=== PATIENT | male | born 1985 | race Native Hawaiian/Other Pacific Islander ===

== ENCOUNTER → 2017-01-02 | Outpatient (CLI) | payer OTHER ==
--- NOTE | 2017-01-02 13:30 | MR ---
EXAMINATION TYPE: MR lumbar spine wo con DATE OF EXAM: 01/02/2017 12:45 PM COMPARISON: NONE HISTORY: LOW BACK PAIN FOR YEARS TECHNIQUE: Multiplanar, multisequence images of the lumbar spine were acquired. L1-L2: Normal disc appearance without desiccation. No herniation, protrusion or disc bulging. No ca nal stenosis is present. Foramina are patent bilaterally. L2-L3: Normal disc appearance without desiccation. No herniation, protrusion or disc bulging. No ca nal stenosis is present. Foramina are patent bilaterally. L3-L4: Normal disc appearance without desiccation. No herniation, protrusion or disc bulging. No ca nal stenosis is present. Foramina are patent bilaterally. L4-L5: Normal disc appearance without desiccation. No herniation, protrusion or disc bulging. No ca nal stenosis is present. Foramina are patent bilaterally. L5-S1: Normal disc appearance without desiccation. No herniation, protrusion or disc bulging. No ca nal stenosis is present. Foramina are patent bilaterally. Lumbar segments are intact. No paraspinal masses are identified. Conus medullaris has a normal appe arance. IMPRESSION:
== END | disposition home or self-care (01) ==
LOC: RADMRIMAIN 12:07
PROVIDERS: ATTEND Family Medicine
DX: M51.36 Other intervertebral disc degeneration, lumbar region (principal)
CPT/HCPCS: 72148

== ENCOUNTER 2017-01-29 05:44 | Observation (INO) | payer OTHER ==
[2017-01-29] MEDS ORDERED: RX INFO: IV CONTRAST WAS GIVEN 1 EACH MISC MISCELLANE PRN (06:19)
[2017-01-29] MEDS ORDERED: ACETAMINOPHEN IV (For NPO) 1,000 MG in SALINE 1 100ML.BAG IVPB STA (06:20)
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
[2017-01-29 06:39] LABS: Basophils # (A) 0.1 k/uL (0-0.2); Basophils % (A) 0 %; CH 28.6; CHCM 32.5; Eosinophils # (A) 0.1 k/uL (0-0.7); Eosinophils % (A) 1 %; HCT 41.9 % (39.0-53.0); HDW 2.57; HGB 13.4 gm/dL (13.0-17.5); Luc # (Auto) 0.16; Luc % (Auto) 1; Lymphocytes # (A) 1.6 k/uL (1.0-4.8); Lymphocytes % (A) 10 %; MCH 28.3 pg (25.0-35.0); MCV 88.5 fL (80.0-100.0); Mean Platelet Volume 7.6; Monocytes # (A) 0.6 k/uL (0-1.0); Monocytes % (A) 4 %; Neutrophils # (A) 12.8 k/uL (1.3-7.7); Neutrophils % (A) 84 %; RBC 4.73 m/uL (4.30-5.90); RDW 13.6 % (11.5-15.5); WBC 15.3 k/uL (3.8-10.6)
[2017-01-29 06:49] LABS: ALT 50 U/L (21-72); AST 33 U/L (17-59); Alcohol <10 mg/dL; Alkaline Phosphatase 76 U/L (38-126); Anion Gap 13 mmol/L; Blood Urea Nitrogen 11 mg/dL (9-20); Calcium 9.8 mg/dL (8.4-10.2); Carbon Dioxide 28 mmol/L (22-30); Chloride 105 mmol/L (98-107); Glucose 94 mg/dL (74-99); Non-African American GFR(MDRD) >60 (>60 ml/min/1.73 sqM); Potassium 4.3 mmol/L (3.5-5.1); Sodium 146 mmol/L (137-145); Total Bilirubin 0.5 mg/dL (0.2-1.3); Total Protein 7.6 g/dL (6.3-8.2)
[2017-01-29 06:50] LABS: Partial Thromboplastin Time 23.8 sec (22.0-30.0); Prothrombin Time 10.2 sec (9.0-12.0)
[2017-01-29 06:59] LABS: Creatine Kinase 123 U/L (55-170)
[2017-01-29 07:11] LABS: Creatine Kinase MB 0.6 ng/mL (0.0-2.4); Troponin I <0.012 ng/mL (0.000-0.034)
[2017-01-29] MEDS ORDERED: KETOROLAC 30 MG/ML 1 ML VIAL IVP STA (07:28)
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
[2017-01-29] MEDS ORDERED: SODIUM CHLORIDE 0.9% 1,000 ML IV ONE (08:55)
[2017-01-29] MEDS ORDERED: LEVOFLOXACIN 750 MG TAB PO STA (08:56)
[2017-01-29] MEDS ORDERED: HYDROcodone/APAP 5-325MG 1 EACH TAB PO PRN (09:12)
[2017-01-29] MEDS ORDERED: ONDANSETRON 4 MG/2 ML VIAL IVP STA (09:12)
[2017-01-29] MEDS ORDERED: HYDROmorphone 1 MG/ML 1 ML SYRINGE IVP STA (09:12)
[2017-01-29 12:21] LABS: Appearance,Urine Clear (Clear); Bilirubin,Urine Negative (Negative); Glucose,Urine (UA) Negative (Negative); Ketones,Urine Negative (Negative); Leukocyte Esterase,Urine Negative (Negative); Mucus,Urine Rare /hpf; Nitrite,Urine Negative (Negative); Particle Count 1981; Protein,Urine Trace (Negative); RBC,Urine <1 /hpf (0-5); Specific Gravity,Urine 1.034 (1.001-1.035); UA Billing (MACRO vs. MICRO) CHEM; Urobilinogen,Urine <2.0 mg/dL (<2.0); WBC,Urine <1 /hpf (0-5)
[2017-01-29 12:29] VITALS: BMI 28.5
[2017-01-29] MEDS ORDERED: HYDROcodone/APAP 10-325MG 1 EACH TAB PO PRN (12:33)
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
[2017-01-29] MEDS: HYDROcodone/APAP 10-325MG 1 EACH TAB PO PRN ×2 (16:27→21:35)
[2017-01-29] MEDS: IBUPROFEN 600 MG TAB PO SCH ×2 (20:53→21:16)
[2017-01-29] MEDS: FAMOTIDINE 20 MG TAB PO SCH (20:53)
[2017-01-29] MEDS ORDERED: LORazepam 1 MG TAB PO SCH (21:00)
[2017-01-30] MEDS: IBUPROFEN 600 MG TAB PO SCH ×2 (02:00→08:52)
[2017-01-30] MEDS: HYDROcodone/APAP 10-325MG 1 EACH TAB PO PRN ×2 (03:55→10:34)
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
[2017-01-30 08:50] VITALS: RESP 16; TEMP 97.4
[2017-01-30] MEDS: FAMOTIDINE 20 MG TAB PO SCH (08:51)
[2017-01-30] MEDS ORDERED: LEVOFLOXACIN 750 MG TAB PO SCH (09:00)
--- NOTE | 2017-01-30 11:07 | P.PN ---
Progress Note - Text The patient is complaining of nonspecific aches and pains. [facility] Tello the bed. On exam his vital signs are stable. Chest is clear abdomen soft nontender. Patiently discharged home today he'll follow-up in one week.
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
[2017-01-30 11:37] VITALS: BP 137/81; PULSE 86
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
== END 2017-01-30 11:55 | disposition home or self-care (01) ==
LOC: EC 05:44 → 3OBS 08:55
PROVIDERS: ADMIT Surgery; ATTEND Surgery
DX: S27.321A Contusion of lung, unilateral, initial encounter (principal); S10.93XA Contusion of unspecified part of neck, initial encounter; V43.53XA Car driver injured in collision with pick-up truck in traffic accident, initial encounter; R51 Headache; G47.30 Sleep apnea, unspecified; G89.29 Other chronic pain; Z79.899 Other long term (current) drug therapy; M54.5 Low back pain; M25.512 Pain in left shoulder; M25.511 Pain in right shoulder; M25.561 Pain in right knee; R10.2 Pelvic and perineal pain; M54.6 Pain in thoracic spine; M54.2 Cervicalgia; R52 Pain, unspecified
CPT/HCPCS: 96375 ×3; 96374 ×2; 99285 ×2; 36415; 93005; 86900; 86901; 80053; 82550; 82553; 84484; 85025; 85610; 85730; 86850; 81003; 80306; 80320; 71020; 72125; 70450; 71260; 74177; G0378 ×2; L0120; J2405; J1885; J1170; Q9967; J0131

== ENCOUNTER 2018-07-13 08:49 | Emergency (ER) | payer OTHER ==
[2018-07-13 09:03] VITALS: BP 130/74; PULSE 86; RESP 18; TEMP 98.6
[2018-07-13] MEDS ORDERED: IBUPROFEN 600 MG STARTER PACK 4 TAB BTL PO STA (09:33)
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
[2018-07-13] MEDS ORDERED: ACET/COD 300 MG/30 MG STARTER PACK 6 TAB BTL PO STA (09:47)
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
[2018-07-13] MEDS ORDERED: SULFAMETH-TMP DS STARTER PACK 2 TAB BTL PO STA (11:01)
== END 2018-07-13 11:19 | disposition home or self-care (01) ==
LOC: EC 08:49
DX: L03.113 Cellulitis of right upper limb (principal); S42.402A Unspecified fracture of lower end of left humerus, initial encounter for closed fracture; S31.109A Unspecified open wound of abdominal wall, unspecified quadrant without penetration into peritoneal cavity, initial encounter; G47.30 Sleep apnea, unspecified; Z79.899 Other long term (current) drug therapy; Z99.89 Dependence on other enabling machines and devices; V49.49XA Driver injured in collision with other motor vehicles in traffic accident, initial encounter; Y93.89 Activity, other specified; Y92.410 Unspecified street and highway as the place of occurrence of the external cause
CPT/HCPCS: 99284

== ENCOUNTER 2020-01-30 23:10 | Inpatient (IN) | payer OTHER ==
[2020-01-31] MEDS ORDERED: LORazepam 2 MG/ML INJ IM STA ×2 (00:01→02:30)
[2020-01-31 00:31] LABS: Basophils % (A) 1 %; Eosinophils # (A) 0.1 k/uL (0-0.7); Eosinophils % (A) 1 %; HCT 41.9 % (39.0-53.0); HGB 13.9 gm/dL (13.0-17.5); Lymphocytes # (A) 1.6 k/uL (1.0-4.8); Lymphocytes % (A) 34 %; MCH 28.7 pg (25.0-35.0); MCHC 33.3 g/dL (31.0-37.0); MCV 86.4 fL (80.0-100.0); Mean Platelet Volume 8.8; Monocytes # (A) 0.4 k/uL (0-1.0); Monocytes % (A) 8 %; Neutrophils # (A) 2.4 k/uL (1.3-7.7); Neutrophils % (A) 52 %; Platelet Count 266 k/uL (150-450); RBC 4.85 m/uL (4.30-5.90); RDW 12.8 % (11.5-15.5); WBC 4.6 k/uL (3.8-10.6)
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
[2020-01-31 00:41] LABS: ALT 15 U/L (4-49); AST 22 U/L (17-59); Acetaminophen <10.0 ug/mL; African American GFR (CKD) >90 (>60 ml/min/1.73 sqM); Albumin 4.8 g/dL (3.5-5.0); Alcohol <10 mg/dL; Alkaline Phosphatase 80 U/L (38-126); Anion Gap 7 mmol/L; Blood Urea Nitrogen 14 mg/dL (9-20); Calcium 9.6 mg/dL (8.4-10.2); Carbon Dioxide 28 mmol/L (22-30); Chloride 103 mmol/L (98-107); Glucose 141 mg/dL (74-99); Non-African American GFR(CKD) >90 (>60 ml/min/1.73 sqM); Potassium 4.7 mmol/L (3.5-5.1); Salicylate <1.0 mg/dL; Sodium 138 mmol/L (137-145); Total Bilirubin 0.2 mg/dL (0.2-1.3); Total Protein 7.6 g/dL (6.3-8.2)
[2020-01-31] MEDS ORDERED: ZIPRASIDONE 20 MG VIAL IM STA (02:30)
[2020-01-31] MEDS ORDERED: ACETAMINOPHEN TAB 325 MG TAB PO PRN (03:00)
[2020-01-31] MEDS ORDERED: MAGNESIUM HYDROXIDE 2,400 MG/10 ML CUP PO PRN (03:00)
[2020-01-31] MEDS ORDERED: LORazepam 1 MG TAB PO PRN (03:00)
[2020-01-31] MEDS ORDERED: ZIPRASIDONE 20 MG VIAL IM PRN (03:00)
[2020-01-31] MEDS ORDERED: MAG HYDROX/AL HYDROX/SIMETH 30 ML CUP PO PRN (03:00)
[2020-01-31] MEDS ORDERED: LORazepam 2 MG/ML INJ IM PRN (03:21)
[2020-01-31] MEDS: NICOTINE 14MG/24HR PATCH TRANSDERM SCH (11:26)
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
[2020-02-01 02:59] LABS: Albumin 4.5 g/dL (3.5-5.0); Total Bilirubin 0.2 mg/dL (0.2-1.3); Total Protein 7.3 g/dL (6.3-8.2)
[2020-02-01] MEDS: NICOTINE 14MG/24HR PATCH TRANSDERM SCH (09:22)
[2020-02-01] MEDS: ARIPiprazole 5 MG TAB PO SCH (10:23)
[2020-02-01 12:22] LABS: Bilirubin,Unconjugated 0.2 mg/dL (0.0-1.1)
--- NOTE | 2020-02-01 12:23 | P.PN ---
Subjective Progress Note Date: 02/01/20 Principal diagnosis: Unspecified psychotic disorder, rule out bipolar disorder, rule out schizophrenia, rule out schizoaffective disorder, rule out substance-induced mood disorder, rule out amphetamine use disorder, rule out closed head injury I reviewed the medical record, interviewed the patient and discuss his treatment and treatment plan during team meeting. He remains distressed about this hospitalization. He repeatedly demanded discharge. He sees me as the obstacle to him leaving the hospital. I informed him of my conversations with his girlfriend and mother. He would not recognize my concern over his health. He believes that his girlfriend is manipulating his mother and conspiring to take away his home, his car and his personal belongings. He believes that both his mother and girlfriend have multiple personalities. He perseverated on the allegations made by his mother and girlfriend about his behavior as "being hearsay". During the interview he alleged that my personality had changed. Objective - Vital Signs Vital signs: Vital Signs Temp 97.7 F 02/01/20 06:51 Pulse 92 02/01/20 06:51 Resp 16 01/31/20 04:14 BP 108/61 02/01/20 06:51 Pulse Ox 100 02/01/20 06:51 - Exam He was neatly groomed, pleasant and attended to the interview. He had a distressed facial expression. He showed no abnormality of psychomotor activity. His speech was spontaneous with normal rate and rhythm. His affect was dysphoric; expressed anger, irritability and anxiety. He denied suicidal ideation, wishes or homicidal ideation. He feels helpless about this hospitalization but denied feelings of hopelessness or worthlessness. He expressed paranoid ideation, ideas reference and delusional beliefs. His thinking was abstract and associations were coherent and logical. He denied hallucinations and did not appear to be responding to internal stimuli. - Labs CBC & Chem 7: 01/31/20 00:10 01/31/20 00:10 Assessment and Plan Assessment: He remains psychotic and shows no insight or understanding of his illness. Plan: Continue inpatient treatment. Begin Abilify 2.5 mg daily and titrated according to clinical response and tolerance. Continue safety precautions. Encourage participation in therapeutic groups and activities. Evaluate clinical status response to treatment daily basis.
[2020-02-01 16:59] LABS: Hemoglobin A1C 5.3 % (4.0-6.0)
[2020-02-02 07:00] VITALS: BP 111/53; PULSE 100; RESP 18; TEMP 97.8
[2020-02-02] MEDS: ARIPiprazole 5 MG TAB PO SCH (08:43)
[2020-02-02] MEDS: NICOTINE 14MG/24HR PATCH TRANSDERM SCH (08:43)
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
[2020-02-02] MEDS ORDERED: ARIPiprazole 2 MG TAB PO SCH (21:00)
== END 2020-02-02 15:41 | disposition home or self-care (01) | DRG 885 ==
LOC: EC 23:10 → 3MHU 01-31 02:47
PROVIDERS: ADMIT Psychiatry & Neurology Psychiatry; ATTEND Psychiatry & Neurology Psychiatry
DX: F29 Unspecified psychosis not due to a substance or known physiological condition (principal); F12.10 Cannabis abuse, uncomplicated; M19.90 Unspecified osteoarthritis, unspecified site; Z72.0 Tobacco use; Z82.49 Family history of ischemic heart disease and other diseases of the circulatory system; Z82.61 Family history of arthritis
CPT/HCPCS: 36415; 80053; 80061; 80076; 80320; 80329; 82075; 83036; 83520; 84443; 85025; 96372; 99285